=== PATIENT | male | born 1935 ===

== ENCOUNTER 2017-01-28 08:44 | Day surgery (SDC) | payer MEDICARE ==
[2017-01-28 09:16] VITALS: BMI 28.8
[2017-01-28] MEDS ORDERED: Lactated Ringer's 1,000 ML IV ONE (09:50)
[2017-01-28] MEDS ORDERED: cefTRIAXone (Rocephin) 1 gm Inj ONE (09:55)
[2017-01-28] MEDS ORDERED: Bupivacaine 0.5% Inj(30mL) ONE (09:55)
[2017-01-28 09:56] LABS: ALB/GLOB RATIO 1.4 (1.0-2.1); ALKALINE PHOSPHATASE 53 U/L (38-126); ALT/SGPT 69 U/L (21-72); AST/SGOT 28 U/L (17-59); BASO % 0.4 % (0.0-2.0); BILIRUBIN,TOTAL 1.3 mg/dl (0.2-1.3); BLOOD UREA NITROGEN 19 mg/dl (9-20); CALCIUM 8.5 mg/dL (8.4-10.2); CARBON DIOXIDE 25 mmol/L (22-30); CHLORIDE 109 mmol/L (98-107); EOS # 0.2 K/uL (0.0-0.7); EOS % 1.9 % (0.0-4.0); GFR AFRICAN-AMERICAN > 60; GLUCOSE,RANDOM 137 mg/dL (75-110); HEMATOCRIT 47.1 % (35.0-51.0); LYMPH # 1.9 K/uL (1.0-4.3); LYMPH % 17.6 % (20.0-40.0); MEAN CELL VOLUME 87.5 fl (80.0-94.0); MEAN CORPUSCULAR HEMOGLOBIN 28.3 pg (27.0-31.0); MEAN CORPUSCULAR HGB CONC 32.4 g/dL (33.0-37.0); MEAN PLATELET VOLUME 7.8 fl (7.2-11.7); MONO % 9.7 % (0.0-10.0); NEUT # 7.5 K/uL (1.8-7.0); NEUT % 70.4 % (50.0-75.0); POTASSIUM 4.3 MMOL/L (3.6-5.0); RED CELL DISTRIBUTION WIDTH 14.4 % (11.5-14.5); SODIUM 143 mmol/l (132-148); TOTAL PROTEIN 6.8 G/DL (6.3-8.2); WHITE BLOOD COUNT 10.7 K/uL (4.8-10.8)
[2017-01-28 09:58] LABS: PARTIAL THROMBOPLASTIN TIME 28.8 Seconds (25.6-37.1)
[2017-01-28] MEDS ORDERED: Lidocaine 1% Inj (20ml) ONE (10:10)
[2017-01-28] MEDS ORDERED: Propofol 10 mg/ml Inj (20 ML) ONE (10:18)
[2017-01-28] MEDS ORDERED: Etomidate 20 mg/10ml Inj IV ONE (10:20)
[2017-01-28] MEDS ORDERED: Ciprofloxacin 400mg/200ml D5W IVPB ONE (10:30)
[2017-01-28] MEDS ORDERED: Dexamethasone 4 mg/1 ml ONE (10:31)
[2017-01-28] MEDS ORDERED: Ciprofloxacin 400mg/200ml D5W 400 MG/200 ML BAG IVPB ONE (10:32)
[2017-01-28] MEDS ORDERED: Lidocaine 1% Inj (20ml) IJ ONE (10:33)
[2017-01-28] MEDS ORDERED: Desflurane Inhalation Anesthetic Liq (240 ml) ONE (10:46)
[2017-01-28] MEDS ORDERED: ePHEDrine 50 mg/ml Inj ONE (10:49)
[2017-01-28] MEDS ORDERED: Lactated Ringer's 1,000 ML IV SCH (11:06)
[2017-01-28] MEDS ORDERED: HYDROmorphone 0.5 mg/0.5 ml ISec IVP PRN (11:06)
[2017-01-28 12:56] VITALS: RESP 18; TEMP 97.8; O2SAT 97
[2017-01-28 13:49] VITALS: BP 143/72; PULSE 59
--- NOTE | 2017-02-15 14:41 | OP ---
PROCEDURE DATE: 01/11/2017 PREOPERATIVE DIAGNOSIS: Phimosis. POSTOPERATIVE DIAGNOSIS: Phimosis. PROCEDURE PERFORMED: Circumcision. SURGEON: Antolin Fierro MD DESCRIPTION OF PROCEDURE: Patient placed in the operating table in a supine position. The area of the groin was draped and prepped in sterile manner. Using circumferential incisions, I removed a section of foreskin from behind the prepuce and approximately 1.5 to 2 cm of foreskin was removed. Once this was removed, there was some active bleed or subcutaneously,they were cauterized and then the reapproximation of the skin edges were done with multiple interrupted 4-0 chromic sutures. Blood loss was then 2 mL. Patient sustained this procedure well. He was taken from the operating room in good condition. Antolin Fierro MD
== END 2017-01-28 14:29 | disposition home or self-care (01) ==
LOC: H.OPSURG 08:44
PROVIDERS: ATTEND Urology
DX: N47.2 Paraphimosis (principal); I25.10 Atherosclerotic heart disease of native coronary artery without angina pectoris; E11.9 Type 2 diabetes mellitus without complications; E78.5 Hyperlipidemia, unspecified; I10 Essential (primary) hypertension; J43.9 Emphysema, unspecified
CPT/HCPCS: 36415; 54161; 80053; 82948; 85025; 85610; 85730; 88304; J0696; J0744; J1100; J2001; J2405; J2704; J3010; J7030; J7120